=== PATIENT | female | born 1935 | race Two or more races ===

== ENCOUNTER 2020-02-12 10:17 | Outpatient (CLI) | payer OTHER | END 2020-02-12 10:22 | disposition home or self-care (01) | LOC: LAB 10:17 | PROVIDERS: ATTEND Radiology Diagnostic Radiology | DX: N20.0 Calculus of kidney (principal) ==

== ENCOUNTER 2020-02-12 14:15 | Outpatient (CLI) | payer OTHER | END 2020-02-12 14:27 | disposition home or self-care (01) | LOC: MAMO-SONO 14:15 → SONOGRAMA 14:15 → MAMO-SONO 15:30 | PROVIDERS: ATTEND Surgery | DX: N64.89 Other specified disorders of breast (principal); N60.02 Solitary cyst of left breast; N60.01 Solitary cyst of right breast; C50.411 Malignant neoplasm of upper-outer quadrant of right female breast; N60.12 Diffuse cystic mastopathy of left breast ==

== ENCOUNTER 2020-03-04 08:15 | Outpatient (CLI) | payer OTHER | END 2020-03-04 08:31 | disposition home or self-care (01) | LOC: LAB 08:15 | PROVIDERS: ATTEND Obstetrics & Gynecology | DX: D64.89 Other specified anemias (principal); C50.411 Malignant neoplasm of upper-outer quadrant of right female breast; R97.0 Elevated carcinoembryonic antigen [CEA]; R57.8 Other shock ==

== ENCOUNTER → 2020-03-04 | Outpatient (CLI) | payer OTHER | END | disposition home or self-care (01) | LOC: SONOGRAMA 09:17 | DX: Q51.818 Other congenital malformations of uterus (principal); G31.89 Other specified degenerative diseases of nervous system; C50.411 Malignant neoplasm of upper-outer quadrant of right female breast; D25.9 Leiomyoma of uterus, unspecified ==

== ENCOUNTER 2020-03-11 06:23 | Day surgery (SDC) | payer OTHER | END 2020-03-11 22:00 | disposition home or self-care (01) | LOC: CIR.AMB 06:23 | PROVIDERS: ATTEND Surgery | DX: D05.11 Intraductal carcinoma in situ of right breast (principal); N63.20 Unspecified lump in the left breast, unspecified quadrant; Z20.828 Contact with and (suspected) exposure to other viral communicable diseases ==